=== PATIENT | male | born 1985 | race Caucasian/White ===

== ENCOUNTER → 2017-10-02 | Emergency (ER) | payer OTHER ==
[~2017-10-02] VITALS: Ht 185.4 cm; Wt 115.8 kg
[~2017-10-02] MED LIST: ALBU8.5H3 INH; CETI10CA PO; CYCL-319 PO; DM/P295L11 PO; GUAI118L94 PO; HYDR-3498 PO; IBUP-1542 PO; IBUP800T25 PO; KETOROLAC 30 MG INJ IM STA
[2017-10-02 20:39] VITALS: Ht 185.4 cm; Wt 115.8 kg
--- NOTE | 2017-10-02 23:21 | ERD ---
ER Documentation Chief Complaint Chief Complaint Mid/lower back pain, stated feels like spasm x 0430 HPI 32-year-old male presenting with a chief complaint of back pain. Patient has had chronic back pain for the past few years. States that gets better with rest and worse with movement. Has not taken any medications to relieve the symptoms. Requesting pain medication. Patient denies mechanism of injury, history of cancer, recent illness, unexplained weight loss, saddle anesthesia, generalized neurological deficit, incontinence, urinary retention, thoracic pain , or pain at rest. Vaccination status up-to-date. No recent travel. Patient has no other complaints and describes no other associated manifestations. Nursing notes have been reviewed and are consistent with history given. ROS All systems reviewed and are negative except as per history of present illness. Medications Home Meds Active Scripts Ibuprofen* (Motrin*) 600 Mg Tab, 600 MG PO Q6H Y for PAIN AND OR ELEVATED TEMP, #30 TAB Prov:FREDERICK NICKERSON NP 01/12/16 Cetirizine Hcl* (Zyrtec*) 10 Mg Capsule, 10 MG PO DAILY, #30 TAB.CHEW Prov:FREDERICK NICKERSON NP 01/12/16 Guaifenesin-Codeine Phosphate* (Guaifenesin* with Codeine Liq) 120 Ml Liquid, 5 ML PO Q4H for COUGH, #60 ML Prov:FREDERICK NICKERSON NP 01/12/16 Albuterol Sulfate* (Proair HFA*) 8.5 Gm Hfa.aer.ad, 2 PUFF INH Q4H Y for WHEEZING AND SOB, #1 INHALER Prov:FREDERICK NICKERSON NP 01/12/16 Hydrocodone Bit-Acetaminophen* (Pound*) 5-325 Mg Tab, 1 TAB PO Q6 Y for PAIN, # 7 TAB Prov:WILLY ABBOTT 06/25/15 Cyclobenzaprine Hcl* (Cyclobenzaprine Hcl*) 10 Mg Tablet, 10 MG PO TID Y for MUSCLE SPASMS, #15 TAB Prov:WILLY ABBOTT. 06/25/15 Ibuprofen* (Motrin*) 800 Mg Tab, 800 MG PO Q6H Y for PAIN AND OR ELEVATED TEMP, #30 TAB Prov:WILLY ABBOTT. 06/25/15 Reported Medications Dm/P-Ephed/Acetaminoph/Doxylam (Nyquil D Cold & Flu Liquid) Unknown Strength Liquid, PO, EA 01/12/16 Allergies Allergies: Coded Allergies: Penicillins (Verified Allergy, Unknown, 06/25/15) PMhx/Soc Medical and Surgical Hx: pt denies Medical Hx, pt denies Surgical Hx History of Surgery: No Anesthesia Reaction: No Hx Neurological Disorder: No Hx Respiratory Disorders: No Hx Cardiac Disorders: No Hx Psychiatric Problems: No Hx Miscellaneous Medical Probl: No Hx Alcohol Use: Yes Hx Substance Use: No Hx Tobacco Use: No Smoking Status: Never smoker Physical Exam Vitals Vital Signs Date Time Temp Pulse Resp B/P Pulse Ox O2 Delivery O2 Flow Rate FiO2 10/02/17 20:39 98.5 80 20 155/65 99 Physical Exam Const: Well-appearing. Mild distress. Back: No midline, flank or CVA tenderness. Negative straight leg raise. Range of motion decreased secondary to pain. Neur: No saddle anesthesia. Neurovascularly intact bilaterally. Head: Normocephalic, Atraumatic. Eyes: Non-injected; No discharge. EOMI and ALEXANDER bilaterally. Ears: Normal External Ears, EACs clear, TM normal bilaterally without erythema. Nose: Normal external nose; no discharge, or sinus tenderness. Oral: No oral edema visualized. Mucous membranes moist and pink. Neck: No tenderness. No cervical lymphadenopathy, or masses palpated. Supple ~ No meningismus. Pulm: Good air movement in upper and lower respiratory tracts. Clear to auscultation bilaterally. No dyspnea or stridor. Cardio: Regular rate and rhythm; No murmurs, gallops or rubs auscultated. Radia pulses 2+ bilaterally. No cyanosis noted. Capillary refill less than 2 seconds. Abd: Normal bowel sounds. Soft, non tender, non distended. MS: Normal motor strength, normal tone with gross examination. Skin: No petechiae or rashes. Good turgor. Ext: No edema. Normal movement of all extremities grossly observed. Psych: Normal Mood and Affect. Procedures/MDM Otherwise healthy 32-year-old male presenting with a chief complaint of back pain. Patient has chronic back pain. No red flags to warrant CT or other imaging modalities. Most likely diagnosis is back strain versus sprain. No concern for cauda equina or other neurovascular compromise. Patient was given Toradol 30 mg IM in the ED with adequate relief of symptoms. I have recommended [id number] ibuprofen for outpatient management I have spoke with the patient regarding their condition and future management. They have verbally responded that they understand their status and treatment plan. The patients vitals are stable, and their current condition is appropriate for discharge. The patient will be given discharge instructions with return precautions. Departure Diagnosis: Primary Impression: Back pain Back pain location: low back pain Chronicity: chronic Back pain laterality : unspecified Sciatica presence: without sciatica Qualified Code: M54.5 - Chronic low back pain without sciatica, unspecified back pain laterality Condition: Stable Patient Instructions: Back Pain (Acute Or Chronic) Referrals: PUSHPA BLAKE MD (PCP) Additional Instructions: Follow up with your PCP within the next 1-3 days for a more thorough evaluation and a possible referral to a specialist. Return the the emergency department immediately if symptoms worsen or change. If you have any questions regarding medications, ask your pharmacist or us before you leave. If any adverse reactions occur while taking your medications, discontinue the treatment and return to the emergency department immediately. Take your medications as directed, and complete the entire course of treatment. KRISTEN TELLES PA-C Oct 02, 2017 23:20
== END | disposition home or self-care (01) ==
LOC: FTE 20:15
DX: M54.5 Low back pain (principal)
CPT/HCPCS: 96372; J1885; Z7502

== ENCOUNTER 2018-04-21 16:05 | Emergency (ER) | END 2018-04-21 16:55 | disposition home or self-care (01) ==

== ENCOUNTER 2018-07-11 09:55 | Emergency (ER) | END 2018-07-11 12:49 | disposition left against medical advice (07) ==

== ENCOUNTER 2018-08-18 01:00 | Emergency (ER) | END 2018-08-18 03:05 | disposition home or self-care (01) ==

== ENCOUNTER 2019-02-03 17:42 | Emergency (ER) | payer SELFPAY ==
[~2019-02-03] VITALS: Ht 188 cm; Wt 121.6 kg
[~2019-02-03 17:42] MED LIST changes: -ALBU8.5H3 INH; +ALBU8.5H8 INH; +BENZ-6 PO; -CYCL-319 PO; +CYCL10TA7 PO; -IBUP800T25 PO; +IBUP800T48 PO; -KETOROLAC 30 MG INJ IM STA
[2019-02-03 17:48] VITALS: BP 156/81; PULSE 89; RESP 18; Ht 188 cm; Wt 121.6 kg
== END 2019-02-03 18:53 | disposition left against medical advice (07) ==
LOC: E/R 17:42
DX: Z53.21 Procedure and treatment not carried out due to patient leaving prior to being seen by health care provider (principal)
CPT/HCPCS: 93005

== ENCOUNTER 2019-05-26 20:02 | Emergency (ER) | payer BC ==
[~2019-05-26] VITALS: Ht 188 cm; Wt 117.2 kg
[2019-05-26 20:07] VITALS: Ht 188 cm; Wt 117.2 kg
[2019-05-26] MEDS ORDERED: ACETAMINOPHEN 325 MG TAB PO STA (20:11)
[2019-05-26] MEDS ORDERED: SODIUM CHLORIDE 0.9% 1L BAG IV* STA (20:11)
[2019-05-26] MEDS ORDERED: KETOROLAC 30 MG INJ IV STA (20:17)
[2019-05-26] MEDS ORDERED: morphine 4 MG/ML VIAL IV STA (20:17)
[2019-05-26] MEDS ORDERED: ONDANSETRON 4 MG INJ IV STA ×2 (20:17→22:06)
[2019-05-26] MEDS ORDERED: SOD CHLORIDE 0.9% 1,000 ML IV STA (20:19)
[2019-05-26] MEDS ORDERED: DEXAMETHASONE 10 MG/ML 1 ML INJ IV ONE (20:30)
[2019-05-26] MEDS ORDERED: VANCOMYCIN 1 GM (PMX) 250 ML IVPB ONE (20:30)
[2019-05-26] MEDS ORDERED: LEVOFLOXACIN 500MG/D5W (PMX) 100 ML IVPB ONE (20:30)
[2019-05-26] MEDS ORDERED: HYDROmorphONE 1 MG/ML SYG IV STA (22:06)
[2019-05-26] MEDS ORDERED: PRED20TA PO (22:08)
[2019-05-26] MEDS ORDERED: AZIT250T PO (22:08)
[2019-05-26] MEDS ORDERED: IBUP800T48 PO (22:08)
[2019-05-26] MEDS ORDERED: ACET500C5 PO (22:08)
[2019-05-26 23:00] VITALS: BP 121/75; PULSE 88; RESP 20
--- NOTE | 2019-05-28 12:25 | ERD ---
ER Documentation Chief Complaint Chief Complaint ST, PALACIO, STIFF NECK, FATIGUE X'S 2 DAYS HPI This is a 33-year-old male with no past medical history. The patient indicates for the past 48 hours he has been experiencing a sore throat. He is also complained of a bandlike headache. Contrary to the triage note the patient states he does not experience a stiff neck but does indicate he has severe difficulty in swallowing. He has had a tactile fever with shaking and chills. He denies any confusion and his states she has not noticed any changes in his mental status. They have 2 young children at home. He states he had no recent sick contacts. He took Tylenol yesterday with no improvement of his symptoms. He denies any recent travel. He denies any changes in vision. He states this is not the worst headache of his life. He denies any chest pain. He has no shortness of breath at rest or exertion. No swelling of his lower extremities. He denies any rashes. ROS All systems reviewed and are negative except as per history of present illness. Medications Home Meds Active Scripts Prednisone* (Prednisone*) 20 Mg Tab, 60 MG PO DAILY for 5 Days, TAB Prov:YKRIE ALVAREZ MD 05/26/19 Azithromycin* (Zithromax*) 250 Mg Tablet, 250 MG PO .VISHALCK DIRECTED, #6 TAB TAKE 500 MG (2 TABS) THE FIRST DAY THEN 250 MG (1 TAB) DAYS 2-5 Prov:KYRIE ALVAREZ MD 05/26/19 Acetaminophen* (Tylophen*) 500 Mg Capsule, 2 CAP PO Q8H PRN for PAIN AND OR ELEVATED TEMP, #30 CAP Prov:KYRIE ALVAREZ MD 05/26/19 Ibuprofen* (Motrin*) 800 Mg Tab, 800 MG PO Q6H PRN for PAIN AND OR ELEVATED TEMP, #30 TAB Prov:KYRIE ALVAREZ MD 05/26/19 Discontinued Reported Medications Dm/P-Ephed/Acetaminoph/Doxylam (Nyquil D Cold & Flu Liquid) Unknown Strength Liquid, PO, EA 01/12/16 Discontinued Scripts Ibuprofen* (Motrin*) 600 Mg Tab, 600 MG PO Q6H PRN for PAIN AND OR ELEVATED TEMP, #30 TAB Prov:FREDERICK NICKERSON NP 08/18/18 Cetirizine Hcl* (Zyrtec*) 10 Mg Capsule, 10 MG PO DAILY, #10 TAB.CHEW Prov:FREDERICK NICKERSON NP 08/18/18 Benzonatate* (Tessalon Perle*) 100 Mg Capsule, 100 MG PO Q8H PRN for COUGH, #20 CAP Prov:FREDERICK NICKERSON NP 08/18/18 Ibuprofen* (Motrin*) 600 Mg Tab, 600 MG PO Q6, #30 TAB Prov:MARY KLEIN-C 04/21/18 Cyclobenzaprine Hcl* (Cyclobenzaprine Hcl*) 10 Mg Tablet, 10 MG PO Q8 PRN for PAIN, #30 TAB Prov:MARY KLEIN-C 04/21/18 Ibuprofen* (Motrin*) 600 Mg Tab, 600 MG PO Q6H PRN for PAIN AND OR ELEVATED TEMP, #30 TAB Prov:FREDERICK NICKERSON NP 01/12/16 Cetirizine Hcl* (Zyrtec*) 10 Mg Capsule, 10 MG PO DAILY, #30 TAB.CHEW Prov:FREDERICK NICKERSON NP 01/12/16 Guaifenesin-Codeine Phosphate* (Guaifenesin* with Codeine Liq) 120 Ml Liquid, 5 ML PO Q4H for COUGH, #60 ML Prov:FREDERICK NICKERSON NP 01/12/16 Albuterol Sulfate* (Proair HFA*) 8.5 Gm Hfa.aer.ad, 2 PUFF INH Q4H PRN for WHEEZING AND SOB, #1 INHALER Prov:FREDERICK NICKERSON NP 01/12/16 Hydrocodone Bit-Acetaminophen* ([place]*) 5-325 Mg Tab, 1 TAB PO Q6 PRN for PAIN, #7 TAB Prov:WILLY ABBOTT 06/25/15 Cyclobenzaprine Hcl* (Cyclobenzaprine Hcl*) 10 Mg Tablet, 10 MG PO TID PRN for MUSCLE SPASMS, #15 TAB Prov:WILLY ABBOTT 06/25/15 Ibuprofen* (Motrin*) 800 Mg Tab, 800 MG PO Q6H PRN for PAIN AND OR ELEVATED TEMP, #30 TAB Prov:WILLY ABBOTT 06/25/15 Allergies Allergies: Coded Allergies: Penicillins (Unverified Allergy, Unknown, 05/26/19) PMhx/Soc Medical and Surgical Hx: pt denies Medical Hx, pt denies Surgical Hx History of Surgery: No Anesthesia Reaction: No Hx Neurological Disorder: No Hx Respiratory Disorders: No Hx Cardiac Disorders: No Hx Psychiatric Problems: No Hx Miscellaneous Medical Probl: No Hx Alcohol Use: Yes (SOCIAL ) Hx Substance Use: No Hx Tobacco Use: No Smoking Status: Never smoker Physical Exam Vitals Vital Signs Date Temp Pulse Resp B/P (MAP) Pulse Ox O2 O2 Flow FiO2 Time Delivery Rate 05/26/19 88 20 121/75 95 Room Air 23:00 (90) 05/26/19 98.6 103 18 125/85 97 Room Air 22:30 (98) 05/26/19 104 20 126/81 96 Room Air 22:00 (96) 05/26/19 101.1 126 20 154/84 96 20:07 (107) Physical Exam Constitutional:Well-developed. Well-nourished. HEENT:Normocephalic. Atraumatic.Pupils were equal round reactive to light. Very dry mucous membranes. Significant erythema and swelling of both tonsils with tonsillar exudates on the right. Uvula midline. No trismus, no drooling no pooling of secretions within the oropharynx. Neck: No nuchal rigidity. Right anterior cervical lymphadenopathy. No posterior cervical spine tenderness or step-offs. Respiratory: Not using accessory muscles of respiration.Lungs were clear to auscultation bilaterally. No rhonchi. No rales. No wheezing. Cardiovascular: Tachycardic with regular rhythm.No murmurs. No rubs were appreciated.S1, S2 normal. Distal pulses are palpable 2+ bilaterally. GI: Abdomen was soft. Nontender. Non Distended. No pulsatile abdominal masses or bruits. No rebound. No guarding. Bowel sounds were present and normal. Muscle skeletal: Full range of motion of both the upper and lower extremities bilaterally.Normal muscle tone.No assymetrical calf tenderness or swelling. Skin: Diaphoretic. No petechia, no purpura. No lesions on the palms or the soles of the feet. No maculopapular rash. NEURO: Patient was alert, awake, orientated x3.No facial droop. Gait observed and normal with no ataxia.Speech had regular rate and rhythm. No focal neurological deficits. Result Diagram: 05/26/19201105/26/192011 Results 24 hrs Laboratory Tests Test 05/26/19 20:12 05/26/19 20:17 05/26/19 23:00 White Blood Count 19.9 10^3/ul Red Blood Count 5.34 10^6/ul Hemoglobin 14.6 g/dl Hematocrit 43.8 % Mean Corpuscular Volume 82.0 fl Mean Corpuscular Hemoglobin 27.3 pg Mean Corpuscular Hemoglobin Concent 33.3 g/dl Red Cell Distribution Width 13.3 % Platelet Count 199 10^3/UL Mean Platelet Volume 10.7 fl Immature Granulocytes % 0.700 % Neutrophils % 81.0 % Lymphocytes % 9.3 % Monocytes % 8.6 % Eosinophils % 0.0 % Basophils % 0.4 % Nucleated Red Blood Cells % 0.0 /100WBC Immature Granulocytes # 0.130 10^3/ul Neutrophils # 16.2 10^3/ul Lymphocytes # 1.9 10^3/ul Monocytes # 1.7 10^3/ul Eosinophils # 0.0 10^3/ul Basophils # 0.1 10^3/ul Nucleated Red Blood Cells # 0.0 10^3/ul Prothrombin Time 15.1 Sec Prothrombin Time Ratio 1.2 INR International Normalized Ratio 1.18 Activated Partial Thromboplast Time 37.4 Sec Sodium Level 140 mmol/L Potassium Level 4.1 mmol/L Chloride Level 102 mmol/L Carbon Dioxide Level 27 mmol/L Anion Gap 11 Blood Urea Nitrogen 15 mg/dl Creatinine 1.15 mg/dl Est Glomerular Filtrat Rate mL/min > 60 mL/min Glucose Level 120 mg/dl Calcium Level 9.3 mg/dl Total Bilirubin 1.4 mg/dl Direct Bilirubin 0.00 mg/dl Indirect Bilirubin 1.4 mg/dl Aspartate Amino Transf (AST/SGOT) 18 IU/L Alanine Aminotransferase (ALT/SGPT) 17 IU/L Alkaline Phosphatase 78 IU/L Total Protein 8.6 g/dl Albumin 4.5 g/dl Globulin 4.10 g/dl Albumin/Globulin Ratio 1.09 Amylase Level 66 U/L Lipase 36 U/L Monoscreen Negative POC Venous Lactate 0.9 mmol/L Bedside Urine pH (LAB) 5.5 Bedside Urine Protein (LAB) 2+ Bedside Urine Glucose (UA) Negative Bedside Urine Ketones (LAB) Negative Bedside Urine Blood 1+ Bedside Urine Nitrite (LAB) Negative Bedside Urine Leukocyte Esterase (L Negative Current Medications Medications Dose Sig/Valentín Start Time Status Last (Trade) Ordered Route PRN Stop Time Admin Dose Reason Admin Sodium 3,520 ml BOLUS OVER 2 05/26/19 Cancel Chloride HOURS STAT 20:11 05/26/19 (NS) IV* 20:12 650 mg ONCE STAT 05/26/19 DC Acetaminophen PO 20:11 05/26/19 (Tylenol 20:14 Tab) Vancomycin 250 ml @ ONCE ONCE 05/26/19 Cancel HCl 125 mls/hr IVPB 20:30 05/26/19 22:29 100 ml @ ONCE ONCE 05/26/19 DC 05/26/19 Levofloxacin/ 100 mls/hr IVPB 20:30 05/26/19 20:34 Dextrose 21:29 10 mg ONCE ONCE 05/26/19 DC 05/26/19 Dexamethasone IV 20:30 05/26/19 20:32 (Decadron) 20:31 Morphine 4 mg ONCE STAT 05/26/19 DC 05/26/19 Sulfate IV 20:17 05/26/19 20:33 (morphine) 20:18 Ketorolac 30 mg ONCE STAT 05/26/19 DC 05/26/19 Tromethamine IV 20:17 05/26/19 20:33 (Toradol) 20:18 Ondansetron 4 mg ONCE STAT 05/26/19 DC 05/26/19 HCl (Zofran IV 20:17 05/26/19 20:32 Inj) 20:18 Sodium 1,000 ml @ Q1H STAT 05/26/19 DC 05/26/19 Chloride 1,000 mls/hr IV 20:19 05/26/19 20:32 21:18 1 mg ONCE STAT 05/26/19 DC 05/26/19 Hydromorphone IV 22:06 05/26/19 22:37 HCl 22:07 (Dilaudid) Ondansetron 4 mg ONCE STAT 05/26/19 DC 05/26/19 HCl (Zofran IV 22:06 05/26/19 22:37 Inj) 22:07 Procedures/MDM This is a 33-year-old male that presented to the emergency department with 3 of the 4 center criteria indicating strep pharyngitis. The patient met Sirs criteria but was not septic. He had severe leukocytosis. He received IV fluids. He was given intravenous antibiotics. The patient was also given opiate analgesic medication and steroids. My clinical suspicion was low for meningitis. Patient no changes in his mental status. He had no signs of Augusto angina. Observation Note: Time: 4 hours Family Hx: No Hypertension Evaluation: Multiple exams showed improving symptoms and no evidence of airway compromise . The patient stated he felt comfortable being discharged home with Medrol Dosepak and antibiotics. I obtained a chest radiograph which showed no infiltrates no pneumothorax. Monospot was negative. The patient was discharged home in fair condition. They were instructed to return to the emergency department at any time if there was any worsening of their condition. The patient stated they would follow up with their PCP in the next 24-48 hours to initiate a suitable medication regimen under the care of their PCP as well as to allow their PCP to monitor any drug reactions. The patient was discharged home with prescriptions after they gave informed consent to the new medication. They were also fully informed by myself on the adverse effects and adverse drug interactions in order to provide adequate safeguards to prevent possible adverse reactions to medications. Departure Diagnosis: Primary Impression: Multiple complaints Condition: Fair Patient Instructions: Pharyngitis, Strep (Confirmed) Referrals: PUSHPA BLAKE MD (PCP) KYRIE ALVAREZ MD May 28, 2019 12:24
== END 2019-05-26 23:14 | disposition home or self-care (01) ==
LOC: E/R 20:02
DX: J02.9 Acute pharyngitis, unspecified (principal); R51 Headache; M54.2 Cervicalgia
CPT/HCPCS: 36415; 71045; 80053; 81003; 82150; 83605; 83690; 85025; 85610; 85730; 86308; 87040; 93005; 96374; 96375; 96376; 99285; J1100; J1170; J1885; J1956; J2270; J2405; J7030